=== PATIENT | male | born 1950 | race Caucasian/White ===

== ENCOUNTER 2019-07-24 14:23 | Emergency (ER) | payer MEDICARE, OTHER ==
[~2019-07-24] VITALS: Ht 177.8 cm; Wt 107.3 kg
[2019-07-24] MEDS ORDERED: METO25TA4 OR (14:37)
[2019-07-24] MEDS ORDERED: SERT-138 OR (14:37)
[2019-07-24] MEDS ORDERED: ROSU40TA4 OR (14:37)
[2019-07-24] MEDS ORDERED: CLOP75TA2 OR (14:37)
[2019-07-24] MEDS ORDERED: AMLO5TAB6 OR (14:37)
--- NOTE | 2019-07-24 16:41 | REP ---
CT BRAIN WITHOUT IV CONTRAST: CT brain performed without IV contrast. There is mild atrophy. There is no midline shift or mass effect. Reed/white differentiation is well maintained. There is no acute intracranial hemorrhage or extra-axial fluid collection. No skull fracture is seen. There are mild vascular calcifications in the carotid siphons. IMPRESSION: No evidence of acute intracranial hemorrhage or skull fracture. Electronically Signed by Kosta Reed MD 07/24/2019 06:06 P
--- NOTE | 2019-07-24 16:43 | REP ---
CT CERVICAL SPINE: CT cervical spine performed in the axial plane. Sagittal and coronal reconstruction images are performed. There is no compression fracture. There is no malalignment. There is no prevertebral soft tissue swelling. There is moderate spurring with disc space narrowing at C5-6 and C6-7, with posterior disc bulging and uncovertebral spurring noted at both of those levels, narrowing the spinal canal. There is narrowing, subchondral sclerosis and spurring at the interval between the dens and anterior ring of C1. IMPRESSION: Degenerative changes. No evidence of acute fracture or dislocation. Electronically Signed by Kosta Reed MD 07/24/2019 06:06 P
[2019-07-24 16:44] VITALS: BP 139/65
== END 2019-07-24 16:47 | disposition home or self-care (01) ==
LOC: M ED 14:23 → EDBD 14:23 → M ED 16:47
DX: S01.01XA Laceration without foreign body of scalp, initial encounter (principal); W18.39XA Other fall on same level, initial encounter; Y92.89 Other specified places as the place of occurrence of the external cause; I10 Essential (primary) hypertension; I25.10 Atherosclerotic heart disease of native coronary artery without angina pectoris; Z79.899 Other long term (current) drug therapy; Z79.02 Long term (current) use of antithrombotics/antiplatelets

== ENCOUNTER → 2019-08-19 | Outpatient (CLI) | payer OTHER, MEDICARE ==
[~2019-08-19] MED LIST: AMLO5TAB6 OR; CLOP75TA2 OR; METO25TA4 OR; ROSU40TA4 OR; SERT-138 OR
--- NOTE | 2019-08-21 14:28 | SLEEPCENT ---
DATE OF STUDY: 08/19/2019 ORDERED BY: Dr. Fisher Nocturnal polysomnography was performed for evaluation of sleep physiology in this patient with nonrestorative sleep and snoring, who has multiple comorbidities including obesity. 7 hours and 53 minutes of data were reviewed. There were 340 minutes of sleep identified. Sleep latency was prolonged at 53.5 minutes. REM latency was quite prolonged at 292.5 minutes and sleep architecture showed fragmentation and poor progression. There were periods of wake resulting in reduced sleep efficiency to 72.6%. Only two REM cycles were seen late in the study. The patient's electrocardiogram showed a sinus rhythm with an average heart rate of 58 beats per minute. Rate ranged 50-80 beats per minute. EEG showed some coarsening in background with alpha intrusion, but no focal events and there were normal waveforms for awake and sleep. There 225 respiratory events identified of 10 seconds in duration or greater for an apnea-hypopnea index of 39.7. The events were primarily obstructive, but 40 mixed and central apneas were seen. The events were not exclusive to sleep stage. There were more frequent in the supine posture. Arousals from respiratory events occurred 13.8 times per hour and oxygen desaturations were seen into the 80s. There was some limb activity noted in the EMG leads but limb movement arousals were few and there was significant snoring. IMPRESSION: Severe obstructive sleep apnea syndrome (G47.33). Apnea-hypopnea index 39.7. RECOMMENDATIONS: The patient should be encouraged to return to sleep disorder center for pressure therapy. In the interim, alcohol and sedative avoidance should be practiced and caution exercised during operation of motor vehicles.
== END ==
LOC: M SLEEP 19:33
PROVIDERS: ATTEND Internal Medicine
DX: G47.33 Obstructive sleep apnea (adult) (pediatric) (principal)